=== PATIENT | male | born 1960 | race Caucasian/White ===

== ENCOUNTER 2018-10-29 14:52 | Emergency (ER) | payer MEDICAID ==
[~2018-10-29] VITALS: Ht 172.7 cm; Wt 74.3 kg
[2018-10-29] MEDS ORDERED: SODIUM BICARBONATE 1 MEQ/ML, 50ML VIAL ONE (15:00)
[2018-10-29] MEDS ORDERED: EPINEPHRINE SYRINGE 0.1 MG/ML, 10ML ONE (15:00)
[2018-10-29] MEDS ORDERED: SODIUM CHLORIDE 0.9%, 250ML ONE (15:00)
[2018-10-29] MEDS ORDERED: CODE BLUE RESPONSE XX ONE (15:00)
[2018-10-29] MEDS ORDERED: EPINEPHRINE 1 MG/ML, 1ML ONE (15:00)
[2018-10-29] MEDS ORDERED: ATROPINE SYRINGE 0.1 MG/ML, 10ML ONE (15:00)
--- NOTE | 2018-10-29 15:35 | NUR ---
Late entry: Pt arrived to ED via [facility] with code in progress at [id number]. Pt's friend found pt down and called 911. Please refer to code sheet for documentation. Pt pronounced at [address] Jasso. OBDULIA Carysa involved in pt's case to attempt to locate pt's next of kin.
--- NOTE | 2018-10-29 16:26 | NUR ---
PRISON PSYCHIATRIST AT BEDSIDE.
== END 2018-10-29 16:44 | disposition expired ==
LOC: EDBD 14:52 → ED 16:24
DX: I46.9 Cardiac arrest, cause unspecified (principal); I21.09 ST elevation (STEMI) myocardial infarction involving other coronary artery of anterior wall; R09.2 Respiratory arrest; E11.9 Type 2 diabetes mellitus without complications
CPT/HCPCS: 36415; 80047; 92950; 93005; 99285; J0171; J0461; J7050